=== PATIENT | female | born 1960 | race Caucasian/White ===

== ENCOUNTER 2020-09-21 07:29 | Emergency (ER) | payer OTHER ==
[~2020-09-21] VITALS: Ht 157.5 cm; Wt 73.0 kg
[~2020-09-21 07:29] MED LIST: ALEN70TA68 PO; CALC-700 PO; FISH1CAP2 PO; FLUO10CA25 PO; HYDR30CR RC; LIDO35.44 TP; NAPR220T66 PO; PANT40TA4 PO; TURM500C8 PO
[2020-09-21 08:43] VITALS: BP 116/98
[2020-09-21] MEDS ORDERED: MORPHINE SULFATE 4 MG/ML CPJ (NOT FOR IM USE) IV STA (08:43)
[2020-09-21] MEDS ORDERED: MAGNESIUM/ALUMINUM HYDROXIDE/SIMETHICONE 30ML UDC PO STA (08:43)
[2020-09-21] MEDS ORDERED: FAMOTIDINE 20MG/2ML VIAL IV STA (08:43)
[2020-09-21] MEDS ORDERED: METOCLOPRAMIDE HCL 10MG/2ML VIAL IV STA (08:43)
[2020-09-21] MEDS ORDERED: SODIUM CHLORIDE 0.9% 1,000 ML IV ONE (08:45)
[2020-09-21 09:00] LABS: CLARITY URINE CLEAR (CLEAR); COLOR URINE YELLOW (YELLOW); KETONES URINE NEGATIVE (NEGATIVE); LEUKOCYTE ESTERASE URINE NEGATIVE (NEGATIVE); NITRITE URINE NEGATIVE (NEGATIVE); OCCULT BLOOD URINE NEGATIVE (NEGATIVE); PROTEIN URINE TRACE (NEGATIVE); SPECIFIC GRAVITY URINE 1.017 (1.005-1.030); UROBILINOGEN URINE 0.2 E.U./dL (0.2-1.0)
[2020-09-21 09:08] LABS: INR 0.9; PROTHROMBIN TIME 9.8 sec (9.6-11.0)
[2020-09-21 10:18] LABS: CHLORIDE 111 mEq/L (98-107)
[2020-09-21] MEDS ORDERED: POTASSIUM CHLORIDE 20MEQ TABLET SR PO ONE (11:00)
== END 2020-09-21 12:30 | disposition home or self-care (01) ==
LOC: ER 07:29
DX: K29.70 Gastritis, unspecified, without bleeding (principal)
CPT/HCPCS: 36415; 80053; 81003; 83690; 85610; 93005; 96361; 96374; 96375; 99285; J2270; J2765; J3490; J7030

== ENCOUNTER 2022-06-19 17:47 | Emergency (ER) | payer OTHER ==
[~2022-06-19] VITALS: Ht 157.5 cm; Wt 52.0 kg
[~2022-06-19 17:47] MED LIST changes: -ALEN70TA68 PO; +ALEN70TA79 PO; +LIDO35.421 TP; -LIDO35.44 TP; -PANT40TA4 PO; +PANT40TA51 PO
[2022-06-19] MEDS ORDERED: ONDANSETRON HCL 4MG/2ML INJ IV STA (20:03)
[2022-06-19] MEDS ORDERED: MORPHINE SULFATE 4 MG/ML CPJ (NOT FOR IM USE) IV STA (20:03)
[2022-06-19] MEDS ORDERED: SODIUM CHLORIDE 0.9% 1,000 ML IV ONE (20:15)
[2022-06-19] MEDS ORDERED: FAMOTIDINE 20MG/2ML VIAL IV ONE (20:30)
[2022-06-19 20:31] LABS: CLARITY URINE CLEAR (CLEAR); COLOR URINE YELLOW (YELLOW); KETONES URINE NEGATIVE (NEGATIVE); LEUKOCYTE ESTERASE URINE NEGATIVE (NEGATIVE); NITRITE URINE NEGATIVE (NEGATIVE); OCCULT BLOOD URINE NEGATIVE (NEGATIVE); PROTEIN URINE TRACE (NEGATIVE); SPECIFIC GRAVITY URINE 1.014 (1.005-1.030); UROBILINOGEN URINE 0.2 E.U./dL (0.2-1.0)
[2022-06-19 20:33] LABS: BASOPHILS % 0.7 % (0.0-2.0); EOSINOPHILS % 0.1 % (0.0-5.0); HEMATOCRIT. 41.7 % (36.0-48.0); HEMOGLOBIN. 13.3 g/dL (12.0-16.0); LYMPHOCYTES % 12.1 % (20.0-50.0); MEAN CORPUSCULAR HEMOGLOBIN 24.7 pg (28.0-32.0); MEAN CORPUSCULAR VOLUME 77.4 fL (81.0-99.0); MEAN PLATELET VOLUME 9.8 fl (7.4-10.4); NEUTROPHILS % 80.1 % (40.0-76.0); PLATELET 194 x1000/uL (130-400); RED BLOOD CELL COUNT 5.39 mill/uL (4.2-5.4); RED CELL DISTRIBUTION WIDTH 17.1 % (11.6-14.6)
[2022-06-19 20:37] LABS: CHLORIDE 103 mEq/L (98-107)
[2022-06-19 20:44] VITALS: BP 155/85
[2022-06-19] MEDS ORDERED: POTASSIUM CHLORIDE 20MEQ TABLET SR PO ONE (21:00)
[2022-06-19] MEDS ORDERED: POTA-205 MT (22:43)
[2022-06-19] MEDS ORDERED: FAMO-135 MT (22:43)
[2022-06-19] MEDS ORDERED: ONDA4TAB11 PO (22:43)
== END 2022-06-19 23:00 | disposition home or self-care (01) ==
LOC: ER 17:47
DX: R10.13 Epigastric pain (principal); R11.2 Nausea with vomiting, unspecified; K21.9 Gastro-esophageal reflux disease without esophagitis; Z85.6 Personal history of leukemia; Z90.49 Acquired absence of other specified parts of digestive tract; Z79.899 Other long term (current) drug therapy
CPT/HCPCS: 36415; 74176; 80053; 81003; 83690; 85025; 96361; 96374; 96375; 99284; J2270; J2405; J3490; J7030

== ENCOUNTER 2025-03-25 07:56 | Emergency (ER) | payer OTHER ==
[~2025-03-25] VITALS: Ht 157.5 cm; Wt 53.6 kg
[~2025-03-25 07:56] MED LIST changes: +FAMO-135 MT; +ONDA-239 PO; +POTA-205 MT
[2025-03-25 08:00] VITALS: TEMP 36.7; O2SAT 100
[2025-03-25 08:23] LABS: BASOPHILS % 0.6 % (0.0-2.0); EOSINOPHILS % 0.3 % (0.0-5.0); HEMOGLOBIN. 14.4 g/dL (12.0-16.0); LYMPHOCYTES % 11.6 % (20.0-50.0); MEAN CORPUSCULAR HGB CONC 32.7 g/dL (31.0-37.0); MEAN CORPUSCULAR VOLUME 82.6 fL (81.0-99.0); MONOCYTES % 3.1 % (2.0-8.0); NEUTROPHILS % 84.4 % (40.0-76.0); PLATELET 179 x1000/uL (130-400); RED BLOOD CELL COUNT 5.33 mill/uL (4.2-5.4); RED CELL DISTRIBUTION WIDTH 14.5 % (11.6-14.6); WHITE BLOOD COUNT 8.6 x1000/uL (4.5-11.0)
[2025-03-25 08:34] LABS: CLARITY URINE CLEAR (CLEAR); COLOR URINE YELLOW (YELLOW); GLUCOSE URINE NEGATIVE (NEGATIVE); KETONES URINE NEGATIVE (NEGATIVE); LEUKOCYTE ESTERASE URINE NEGATIVE (NEGATIVE); NITRITE URINE NEGATIVE (NEGATIVE); OCCULT BLOOD URINE NEGATIVE (NEGATIVE); PROTEIN URINE TRACE (NEGATIVE); SPECIFIC GRAVITY URINE 1.008 (1.005-1.030); UROBILINOGEN URINE 0.2 E.U./dL (0.2-1.0)
[2025-03-25 08:38] LABS: CHLORIDE 103 mEq/L (98-107); POTASSIUM 3.8 mEq/L (3.5-5.1); SODIUM 140 mEq/L (136-145)
[2025-03-25 08:39] LABS: CALCIUM 9.3 mg/dL (8.7-10.4); CARBON DIOXIDE 30 mEq/L (21-32)
[2025-03-25 08:44] LABS: CREATININE 0.9 mg/dL (0.6-1.0); GLUCOSE 164 mg/dL (70-105); UREA NITROGEN BLOOD 7 mg/dL (9-23)
[2025-03-25 08:57] LABS: BACTERIA URINE FEW; RBC URINE 0-2 /hpf (0-2); SQUAMOUS EPITHELIAL CELL URINE 1+ /lpf (RARE/1+); WBC URINE 0-2 /hpf (0-2); YEAST URINE NONE SEEN
[2025-03-25] MEDS: SODIUM CHLORIDE 0.9% 1,000 ML IV ONE (09:15)
[2025-03-25] MEDS: MORPHINE SULFATE 4 MG/ML INJ (FOR IV/IM USE) IV ONE (09:15)
[2025-03-25] MEDS: ONDANSETRON HCL 4MG/2ML INJ IV ONE (09:16)
[2025-03-25 09:18] LABS: ALANINE AMINOTRANSFERASE 15 IU/L (10-49); ALBUMIN 4.3 g/dL (3.2-4.8); ASPARTATE AMINOTRANSFERASE 17 IU/L (<34)
[2025-03-25 09:19] LABS: BILIRUBIN DIRECT 0.2 mg/dL (<=3.0); BILIRUBIN TOTAL 0.7 mg/dL (0.1-1.0); PROTEIN TOTAL 7.6 g/dL (6.0-8.3)
[2025-03-25 09:38] LABS: TROPONIN I HIGH SENSITIVITY < 4 ng/L (3.0-34)
[2025-03-25] MEDS: MAGNESIUM/ALUMINUM HYDROXIDE/SIMETHICONE 30ML UDC PO STA (12:32)
[2025-03-25] MEDS: VISCOUS LIDOCAINE 2% 15 ML UDC MM STA (12:32)
[2025-03-25] MEDS: FAMOTIDINE 20MG TABLET PO ONE (12:32)
[2025-03-25 13:30] VITALS: BP 116/71; PULSE 64; RESP 16; O2SAT 99
[2025-03-25] MEDS ORDERED: MAG355OR21 MT (13:32)
[2025-03-25] MEDS ORDERED: FAMO-135 MT (13:32)
== END 2025-03-25 14:07 | disposition home or self-care (01) ==
LOC: ER 07:56
DX: R11.2 Nausea with vomiting, unspecified (principal); Z79.899 Other long term (current) drug therapy; Z90.49 Acquired absence of other specified parts of digestive tract; Z91.02 Food additives allergy status
CPT/HCPCS: 99285; 74176; 96374; 96361; 96375; 80076; 80048; 81003; 83690; 85025; 84484; 36415; 93005; J2405; J2270; J7030